=== PATIENT | male | born 1980 | race Two or more races ===

== ENCOUNTER 2019-11-21 18:17 | Inpatient (IN) | payer OTHER ==
[2019-11-21 20:46] VITALS: BMI 24.1
--- NOTE | 2019-11-22 04:15 | PN ---
[facility] CIWA - CIWA Score Nausea/Vomitin Muscle Tremors: 5 Anxiety: 4-Mod. Anxious/Guarded Agitation: 2 Paroxysmal Sweats: 3 Orientation: 0-Oriented Tacttile Disturbances: 0-None Auditory Disturbances: 0-None Visual Disturbances: 0-None Headache: 2-Mild CIWA-Ar Total Score: 18 [facility] Progress Note (SOAP) Subjective: Alcohol withdrawal symptoms Cannabis dependence Nicotine dependence Objective: 11/22/19 04:12 Alert and oriented x 3 Tremors Sweating Anxiety Shakes Kushal to the back of the head and chin to be removed Vital Signs Temperature 97.7 F 11/22/19 02:14 Pulse Rate 105 H 11/22/19 02:14 Respiratory Rate 20 11/22/19 02:14 Blood Pressure 137/89 11/22/19 02:14 O2 Sat by Pulse Oximetry (%) Assessment: 11/22/19 04:15 Alcohol withdrawal symptoms Plan: Admit to detox Librium regimen H and P including medication confirmation to be done in the morning See admission orders
[2019-11-22] MEDS ORDERED: MAG HYDROX/AL HYDROX/SIMETH 30 ML UNIT-DOSE CUP PO PRN (04:16)
[2019-11-22] MEDS ORDERED: MENTHOL/PHENOL 1 EACH UD MM PRN (04:16)
[2019-11-22] MEDS ORDERED: IBUPROFEN 400 MG TABLET (FP) PO PRN (04:16)
[2019-11-22] MEDS ORDERED: ACETAMINOPHEN 325 MG TABLET (FP) PO PRN ×2 (04:16)
[2019-11-22] MEDS ORDERED: chlordiazePOXIDE HCL 25 MG CAPSULE PO PRN (04:16)
[2019-11-22] MEDS ORDERED: MAGNESIUM CITRATE 300 ML BOTTLE PO PRN (04:16)
[2019-11-22] MEDS ORDERED: NICOTINE POLACRILEX 2 MG GUM BUC PRN (04:16)
[2019-11-22] MEDS ORDERED: hydrOXYzine PAMOATE 25 MG CAPSULE (FP) PO PRN (04:16)
[2019-11-22] MEDS ORDERED: METHOCARBAMOL 500 MG TABLET PO PRN (04:16)
[2019-11-22] MEDS ORDERED: MELATONIN 5 MG TABLETS PO PRN (04:16)
[2019-11-22] MEDS ORDERED: BISMUTH SUBSALICYLATE 524 MG/30 ML UD PO PRN (04:16)
[2019-11-22] MEDS ORDERED: MAGNESIUM HYDROX 2400MG/30ML ORAL SUSPENSION 30 ML CUP PO PRN (04:16)
[2019-11-22] MEDS: chlordiazePOXIDE HCL 25 MG CAPSULE PO SCH ×4 (05:56→23:36)
--- NOTE | 2019-11-22 09:21 | CONSULT ---
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 Refer to addiction counselor's summary for further information Medical History: Unremarkable. Smokes 3-4 cigarettes daily Psychiatric History: Reports that his first psychiatric contact occured in his 20's at [facility]. He said that he saw an outpatient psychiatrist at [facility] who diagnosed him with Bipolar and Schizophrenia. Reports seeing psychiatrist at that facility on & off till he moves to [place] at age 32. Reports that he was tried on different medications including Seroquel, Wellbutrin, Adderall etc. It is unclear why he was prescribed Adderal. Told fiction writer at first that it was to wean him off crystal meth, then he said that he was diagnosed with ADHD at age 32 before moving to [facility]. He added that he received Adderall through the mail from [place] in 2016. Denies receving psychiatric treatment since in [facility]. Denies prevous psychiatric hospitalization or suicidal attempt. Denies exoeriencing psychotic, manic symptoms, S/H ideations. However, reports feeling depressed Physical/Sexual Abuse/Trauma History: Denies history of abuse as a child or DV relationship as an adult Mental Status Exam - Mental Status Exam Alert and Oriented to: Time, Place, Person Cognitive Function: Fair Patient Appearance: Disheveled Mood: Depressed Affect: Appropriate Patient Behavior: Cooperative Speech Pattern: Clear Voice Loudness: Normal Thought Process: Intact, Goal Oriented Hallucinations: Denies Suicidal Ideation: Denies Homicidal Ideation: Denies Insight/Judgement: Poor Sleep: Fair Appetite: Good Muscle strength/Tone: Normal Gait/Station: Normal Psychiatric Findings - Problem List ([place] 1, 2,3) (1) Mood disorder Current Visit: Yes Status: Chronic (2) Bipolar disorder Current Visit: Yes Status: Ruled-out (3) ADHD (attention deficit hyperactivity disorder) Current Visit: Yes Status: Ruled-out (4) Substance induced mood disorder Current Visit: Yes Status: Acute (5) Alcohol dependence with uncomplicated withdrawal Current Visit: Yes Status: Acute (6) Cannabis abuse Current Visit: Yes Status: Acute (7) Nicotine dependence Current Visit: Yes Status: Acute - Initial Treatment Plan Initial Treatment Plan: 1) Continue inpatient detoxification. 2) Discussed with patient all referral options after completing detox and once cleaned for a significant period of time, he will need to be reassessed by a psychiatrist for diagnostic clarification and treatment
[2019-11-22] MEDS ORDERED: NICOTINE 14 MG/24 HOURS TOPICAL PATCH TD SCH (10:00)
[2019-11-22] MEDS: PRENATAL VITAMINS W/ FOLIC ACID TABLET (FP) PO SCH (10:13)
--- NOTE | 2019-11-22 10:29 | HP ---
CIWA Score Nausea/Vomitin Muscle Tremors: 5 Anxiety: 4-Mod. Anxious/Guarded Agitation: 2 Paroxysmal Sweats: 3 Orientation: 0-Oriented Tacttile Disturbances: 0-None Auditory Disturbances: 0-None Visual Disturbances: 0-None Headache: 2-Mild CIWA-Ar Total Score: 18 - Admission Criteria OASAS Guidelines: Admission for Medically Managed Detox: Requires at least one of the followin. CIWA greater than 12 2. Seizures within the past 24 hours 3. Delirium tremens within the past 24 hours 4. Hallucinations within the past 24 hours 5. Acute intervention needed for co occurring medical disorder 6. Acute intervention needed for co occurring psychiatric disorder 7. Severe withdrawal that cannot be handled at a lower level of care (continued vomiting, continued diarrhea, abnormal vital signs) requiring intravenous medication and/or fluids 8. Admitting History and Physical - Admission Chief Complaint: I am here for detox and go to rehab. History Source: Patient Limitations to Obtaining History: No Limitations - Past Medical History Psych: Yes: Bipolar, Depression, Schizophrenia - Past Surgical History Past Surgical History: Yes: None - Smoking History Smoking history: Current some day smoker Have you smoked in the past 12 months: Yes Aproximately how many cigarettes per day: 4 - Alcohol/Substance Use Hx Alcohol Use: Yes History of Substance Use: reports: None - Social History Usual Living Arrangement: Yes: Alone Do you think of yourself as: Straight/Heterosexual ADL: Independent History of Recent Travel: No Admission ROS [facility] - [facility] Chief Complaint: I need to get detox and stay clean. Allergies/Adverse Reactions: Allergies Allergy/AdvReac Type Severity Reaction Status Date / Time No Known Allergies Allergy Verified 11/21/19 20:25 History of Present Illness: pt is a 39yr old male with a history of alcohol dependence seeking detox for treatment. Exam Limitations: No Limitations - Ebola screening Have you traveled outside of the country in the last 21 days: No (N) Have you had contact with anyone from an Ebola affected area: No Have you been sick,other than usual withdrawal symptoms: No Do you have a fever: No - Review of Systems Constitutional: Chills, Night Sweats, Changes in sleep EENT: reports: Tearing Respiratory: reports: No Symptoms reported Cardiac: reports: No Symptoms Reported, Syncope GI: reports: Poor Appetite, Poor Fluid Intake : reports: No Symptoms Reported Musculoskeletal: reports: No Symptoms Reported Integumentary: reports: Bruising (pt states he fell/got hit not sure but he bust his chin open has glue as an adhesive for healing. no s/s of infection noted), Sweating Neuro: reports: Tingling, Tremors Endocrine: reports: Excessive Sweating, Flushing, Intolerance to Cold, Intolerance to Heat Hematology: reports: No Symptoms Reported Psychiatric: reports: No Sypmtoms Reported, Judgement Intact, Mood/Affect Appropiate, Orientated x3, Agitated, Anxious Other Systems: Reviewed and Negative Patient History - Patient Medical History Hx Anemia: No Hx Asthma: No Hx Chronic Obstructive Pulmonary Disease (COPD): No Hx Cancer: No Hx Cardiac Disorders: No Hx Congestive Heart Failure: No Hx Hypertension: No Hx Hypercholesterolemia: No Hx Pacemaker: No HX Cerebrovascular Accident: No Hx Seizures: No Hx Dementia: No Hx Diabetes: No Hx Gastrointestinal Disorders: No Hx Liver Disease: No Hx Genitourinary Disorders: No Hx Sexually Transmitted Disorders: No Hx Renal Disease (ESRD): No Hx Thyroid Disease: No Hx Human Immunodeficiency Virus (HIV): No (pt denies) Hx Hepatitis C: No Hx Depression: Yes Hx Suicide Attempt: No (pt denies) Hx Bipolar Disorder: Yes Hx Schizophrenia: Yes - Patient Surgical History Past Surgical History: No - PPD History Previous Implant?: No Documented Results: Negative w/o proof Implanted On Prior [facility] Admission?: Yes PPD to be Administered?: Yes - Reproductive History Patient is a Female of Child Bearing Age (11 -55 yrs old): No - Smoking Cessation Smoking history: Current some day smoker Aproximately how many cigarettes per day: 4 Hx Chewing Tobacco Use: No Initiated information on smoking cessation: Yes 'Breaking Loose' booklet given: 11/22/19 - Substance & Tx. History Hx Alcohol Use: Yes Hx Substance Use: Yes Substance Use Type: Alcohol, Marijuana Hx Substance Use Treatment: Yes [facility] - Substances abused Alcohol Substance route: Oral Frequency: Daily Amount used: 2 to 3 pints of vodka / 12 cans of beer. Age of first use: 5 Date of last use: 11/21/19 Marijuana/Hashish Substance route: Smoking Frequency: 3-6 times per week Amount used: 1 dime bag Age of first use: 13 Date of last use: 11/20/19 Admission Physical Exam [facility] - Vital Signs Vital Signs: Vital Signs - 24 hr 11/21/19 11/22/19 11/22/19 20:25 02:14 05:11 Temperature 97.7 F 97.7 F 97.7 F Pulse Rate 105 H 105 H 73 Respiratory 20 20 18 Rate Blood Pressure 137/89 137/89 133/85 - Physical General Appearance: Yes: Appropriately Dressed, Moderate Distress, Irritable, Sweating, Anxious HEENTM: Yes: Hearing grossly Normal, Normal Voice Respiratory: Yes: Lungs Clear, Normal Breath Sounds, No Respiratory Distress Neck: Yes: No masses,lesions,Nodules Breast: Yes: Within Normal Limits Cardiology: Yes: Regular Rhythm, Regular Rate, S1, S2 Abdominal: Yes: Normal Bowel Sounds, Non Tender, Soft Genitourinary: Yes: Within Normal Limits Back: Yes: Normal Inspection Musculoskeletal: Yes: full range of Motion Extremities: Yes: Normal Capillary Refill, Normal Inspection, Tremors Neurological: Yes: Fully Oriented, Alert, Normal Response Integumentary: Yes: Normal Color Lymphatic: Yes: Within Normal Limits - Diagnostic (1) Alcohol dependence with uncomplicated withdrawal Current Visit: Yes Status: Chronic (2) Cannabis abuse Current Visit: Yes Status: Chronic (3) Nicotine dependence Current Visit: Yes Status: Chronic Qualifiers: Nicotine product type: cigarettes Substance use status: uncomplicated Qualified Code(s): F17.210 - Nicotine dependence, cigarettes, uncomplicated (4) Substance induced mood disorder Current Visit: Yes Status: Acute (5) Mood disorder Current Visit: Yes Status: Chronic (6) ADHD (attention deficit hyperactivity disorder) Current Visit: Yes Status: Ruled-out (7) Bipolar disorder Current Visit: Yes Status: Ruled-out Cleared for Admission [facility] - Detox or Rehab [facility] Level of Care: Medically Managed Detox Regimen/Protocol: Librium Breathalyzer - Breathalyzer Breathalyzer: 0.148 Urine Drug Screen - Test Device Lot number: [id number] Expiration date: 06/06/21 - Control Is test valid?: Yes - Results Drug screen NEGATIVE: No Urine drug screen results: BZO-Benzodiazepines Inpatient Rehab Admission - Rehab Decision to Admit Inpatient rehab admission?: No
[2019-11-22] MEDS: THIAMINE HCL 100 MG TABLET (FP) PO SCH (23:37)
[2019-11-23] MEDS: chlordiazePOXIDE HCL 25 MG CAPSULE PO SCH ×4 (05:45→23:49)
[2019-11-23] MEDS: PRENATAL VITAMINS W/ FOLIC ACID TABLET (FP) PO SCH (10:11)
[2019-11-23 11:32] LABS: HEMATOCRIT 47.8 % (35.4-49); HEMOGLOBIN 16.6 GM/dL (11.7-16.9); MCH 34.7 pg (25.7-33.7); MCHC 34.6 g/dl (32.0-35.9); MEAN CELL VOLUME 100.1 fl (80-96); MEAN PLT VOLUME 8.9 fl (7.5-11.1); PLATELET COUNT 199 K/MM3 (134-434); RBC 4.78 M/mm3 (4.00-5.60); RDW 12.1 % (11.9-15.9); WHITE BLOOD COUNT 4.4 K/mm3 (4.0-10.0)
--- NOTE | 2019-11-23 11:33 | PN ---
[facility] CIWA - CIWA Score Nausea/Vomitin-No Nausea/No Vomiting Muscle Tremors: 3 Anxiety: 3 Agitation: 3 Paroxysmal Sweats: 2 Orientation: 0-Oriented Tacttile Disturbances: 0-None Auditory Disturbances: 0-None Visual Disturbances: 0-None Headache: 0-None Present CIWA-Ar Total Score: 11 S Progress Note (SOAP) Subjective: sweats anxiety body aches Objective: 11/23/19 11:30 Vital Signs Temperature 96.3 F L 11/23/19 10:00 Pulse Rate 75 11/23/19 10:00 Respiratory Rate 18 11/23/19 10:00 Blood Pressure 110/71 11/23/19 10:00 O2 Sat by Pulse Oximetry (%) pending labs aaox3 ambulating no acute distress Assessment: 11/23/19 11:31 withdrawals bruise noted to chin; bacitracin oint ordered Plan: continue detox
[2019-11-23 11:41] LABS: ALBUMIN 3.8 g/dl (3.4-5.0); BILIRUBIN,TOTAL 1.2 mg/dL (0.2-1); BLOOD UREA NITROGEN 9.9 mg/dL (7-18); CALCIUM 9.3 mg/dL (8.5-10.1); CREATININE 0.8 mg/dL (0.55-1.3); POTASSIUM 4.2 mmol/L (3.5-5.1); TOT PROT 6.9 g/dl (6.4-8.2)
[2019-11-23] MEDS: BACITRACIN 15 GM TUBE TOPICAL OINTMENT TP SCH ×2 (12:41→23:49)
[2019-11-23] MEDS: THIAMINE HCL 100 MG TABLET (FP) PO SCH (23:49)
[2019-11-24] MEDS ORDERED: chlordiazePOXIDE HCL 10 MG CAPSULE PO PRN
[2019-11-24] MEDS: chlordiazePOXIDE HCL 10 MG CAPSULE PO SCH ×2 (05:31→10:16)
[2019-11-24 09:39] VITALS: BP 151/78; PULSE 91; TEMP 98.2
[2019-11-24] MEDS: PRENATAL VITAMINS W/ FOLIC ACID TABLET (FP) PO SCH (10:15)
[2019-11-24] MEDS: BACITRACIN 15 GM TUBE TOPICAL OINTMENT TP SCH (10:16)
--- NOTE | 2019-11-24 12:13 | PN ---
S CIWA - CIWA Score Nausea/Vomitin-No Nausea/No Vomiting Muscle Tremors: 2 Anxiety: 1-Mildly Anxious Agitation: 1-Slight > Activity Paroxysmal Sweats: No Perspiration Orientation: 0-Oriented Tacttile Disturbances: 0-None Auditory Disturbances: 0-None Visual Disturbances: 0-None Headache: 0-None Present CIWA-Ar Total Score: 4 [facility]HS Progress Note (SOAP) Subjective: feeling better anxiety Objective: 11/24/19 12:12 Vital Signs Temperature 98.2 F 11/24/19 09:39 Pulse Rate 91 H 11/24/19 09:39 Respiratory Rate 18 11/24/19 09:39 Blood Pressure 151/78 11/24/19 09:39 O2 Sat by Pulse Oximetry (%) aaox3 ambulating no acute distress Assessment: 11/24/19 12:12 mild withdrawal sx Plan: d/c in am
--- NOTE | 2019-11-24 14:54 | DS ---
[facility] Detox Discharge Summary Admission Date: 11/22/19 Discharge Date: 11/24/19 - History Present History: Alcohol Dependence, Cannabis Dependence - Physical Exam Results Vital Signs: Vital Signs Temperature 98.2 F 11/24/19 09:39 Pulse Rate 91 H 11/24/19 09:39 Respiratory Rate 18 11/24/19 09:39 Blood Pressure 151/78 11/24/19 09:39 O2 Sat by Pulse Oximetry (%) Pertinent Admission Physical Exam Findings: Vital Signs Temperature 98.2 F 11/24/19 09:39 Pulse Rate 91 H 11/24/19 09:39 Respiratory Rate 18 11/24/19 09:39 Blood Pressure 151/78 11/24/19 09:39 O2 Sat by Pulse Oximetry (%) Laboratory Tests 11/23/19 11/23/19 11/23/19 08:20 08:20 08:20 WBC 4.4 RBC 4.78 Hgb 16.6 Hct 47.8 MCV 100.1 H MCH 34.7 H MCHC 34.6 RDW 12.1 Plt Count 199 MPV 8.9 Sodium 137 Potassium 4.2 Chloride 105 Carbon Dioxide 28 Anion Gap 5 L BUN 9.9 Creatinine 0.8 Est GFR (CKD-EPI)AfAm 128.60 Est GFR (CKD-EPI)NonAf 110.96 Random Glucose 99 Calcium 9.3 Total Bilirubin 1.2 H AST 37 ALT 46 Alkaline Phosphatase 166 H Total Protein 6.9 Albumin 3.8 RPR Titer Nonreactive aaox3 ambulating no acute distress - Treatment Hospital Course: Detox Protocol Followed, Detoxed Safely, Responded well, Discharged Condition Good, Rehab Referral Accepted Patient has Accepted a Rehab Referral to: referral provided - Medication Discharge Medications: Ambulatory Orders NK [No Known Home Medication] 11/21/19 - Diagnosis (1) Alcohol dependence with uncomplicated withdrawal Current Visit: Yes Status: Chronic (2) Cannabis abuse Current Visit: Yes Status: Chronic (3) Nicotine dependence Current Visit: Yes Status: Chronic Qualifiers: Nicotine product type: cigarettes Substance use status: uncomplicated Qualified Code(s): F17.210 - Nicotine dependence, cigarettes, uncomplicated (4) Substance induced mood disorder Current Visit: Yes Status: Acute (5) Mood disorder Current Visit: Yes Status: Chronic (6) ADHD (attention deficit hyperactivity disorder) Current Visit: Yes Status: Ruled-out (7) Bipolar disorder Current Visit: Yes Status: Ruled-out - AMA Did Patient Leave Against Medical Advice: No
[2019-11-25] MEDS ORDERED: chlordiazePOXIDE HCL 10 MG CAPSULE PO SCH (05:00)
[2019-11-25] MEDS ORDERED: chlordiazePOXIDE HCL 10 MG CAPSULE PO ONE (06:00)
[2019-11-26] MEDS ORDERED: chlordiazePOXIDE HCL 10 MG CAPSULE PO ONE (05:00)
== END 2019-11-24 03:04 | disposition home or self-care (01) | DRG 775 ==
LOC: YASAS 18:17 → Y6N 11-22 04:25
PROVIDERS: ADMIT Allergy & Immunology; ATTEND Allergy & Immunology
PROC: HZ2ZZZZ Detoxification Services for Substance Abuse Treatment (ICD-10-PCS; principal; 2019-11-22)
DX: F10.230 Alcohol dependence with withdrawal, uncomplicated (principal); F12.10 Cannabis abuse, uncomplicated; F17.210 Nicotine dependence, cigarettes, uncomplicated; F31.9 Bipolar disorder, unspecified; F20.9 Schizophrenia, unspecified; F19.24 Other psychoactive substance dependence with psychoactive substance-induced mood disorder; F39 Unspecified mood [affective] disorder; S01.81XA Laceration without foreign body of other part of head, initial encounter; W19.XXXA Unspecified fall, initial encounter; Y93.89 Activity, other specified; Y92.89 Other specified places as the place of occurrence of the external cause; Y99.8 Other external cause status
CPT/HCPCS: 36415; 80053; 85027; 86593

== ENCOUNTER 2021-09-04 18:17 | Inpatient (IN) | payer OTHER ==
[2021-09-04 19:10] VITALS: BMI 22.6
[2021-09-04] MEDS ORDERED: IBUPROFEN 400 MG TABLET (FP) PO PRN (20:04)
[2021-09-04] MEDS ORDERED: MAG HYDROX/AL HYDROX/SIMETH 30 ML UNIT-DOSE CUP PO PRN (20:04)
[2021-09-04] MEDS ORDERED: BISMUTH SUBSALICYLATE 524 MG/30 ML PO PRN (20:04)
[2021-09-04] MEDS ORDERED: ACETAMINOPHEN 325 MG TABLET (FP) PO PRN ×2 (20:04)
[2021-09-04] MEDS ORDERED: ONDANSETRON *ODT* 4 MG TABLET SL PRN (20:04)
[2021-09-04] MEDS ORDERED: NICOTINE 10 MG CARTRIDGE (INHALER) IH PRN (20:04)
[2021-09-04] MEDS ORDERED: MENTHOL/PHENOL 1 EACH UD MM PRN (20:04)
[2021-09-04] MEDS ORDERED: MAGNESIUM CITRATE 300 ML BOTTLE PO PRN (20:04)
[2021-09-04] MEDS ORDERED: MAGNESIUM HYDROX 2400MG/30ML ORAL SUSPENSION 30 ML CUP PO PRN (20:04)
[2021-09-04] MEDS ORDERED: METHOCARBAMOL 500 MG TABLET PO PRN (20:04)
[2021-09-05] MEDS: hydrOXYzine PAMOATE 25 MG CAPSULE (FP) PO SCH ×6 (05:22→22:17)
[2021-09-05] MEDS: diazePAM 5 MG TABLET PO SCH ×5 (05:22→22:17)
[2021-09-05] MEDS: THIAMINE HCL 100 MG TABLET (FP) PO SCH ×2 (05:38→22:17)
[2021-09-05] MEDS: MELATONIN 5 MG TABLETS PO SCH ×2 (05:38→22:17)
[2021-09-05] MEDS: PRENATAL VITAMINS W/ FOLIC ACID TABLET (FP) PO SCH (10:38)
[2021-09-05 11:26] LABS: HEMATOCRIT 38.8 % (35.4-49); HEMOGLOBIN 14.2 GM/dL (11.7-16.9); MCH 35.1 pg (25.7-33.7); MCHC 36.6 g/dl (32.0-35.9); MEAN CELL VOLUME 95.9 fl (80-96); MEAN PLT VOLUME 8.3 fl (7.5-11.1); PLATELET COUNT 152 10^3/uL (134-434); RBC 4.04 M/mm3 (4.00-5.60); RDW 13.4 % (11.9-15.9); WHITE BLOOD COUNT 3.4 K/mm3 (4.0-10.0)
[2021-09-05 11:40] LABS: CALCIUM 8.8 mg/dL (8.5-10.1)
[2021-09-05 11:41] LABS: ALBUMIN 3.6 g/dl (3.4-5.0); BLOOD UREA NITROGEN 9.4 mg/dL (7-18); CREATININE 0.8 mg/dL (0.55-1.3)
[2021-09-05 11:42] LABS: BILIRUBIN,TOTAL 0.7 mg/dL (0.2-1)
[2021-09-05 11:48] LABS: TOT PROT 6.9 g/dl (6.4-8.2)
[2021-09-05] MEDS: diazePAM 5 MG TABLET PO PRN (14:28)
[2021-09-06] MEDS: diazePAM 5 MG TABLET PO SCH ×3 (05:33→22:10)
[2021-09-06] MEDS: hydrOXYzine PAMOATE 25 MG CAPSULE (FP) PO SCH ×5 (05:33→22:11)
[2021-09-06] MEDS: PRENATAL VITAMINS W/ FOLIC ACID TABLET (FP) PO SCH (10:07)
[2021-09-06] MEDS: diazePAM 5 MG TABLET PO PRN ×2 (10:08→17:44)
[2021-09-06 11:37] LABS: INR 0.92 (0.83-1.09); PROTHROMBIN TIME (PATIENT) 10.7 SEC (9.7-13.0)
[2021-09-06] MEDS: THIAMINE HCL 100 MG TABLET (FP) PO SCH (22:11)
[2021-09-06] MEDS: MELATONIN 5 MG TABLETS PO SCH (22:11)
[2021-09-07] MEDS: diazePAM 5 MG TABLET PO SCH ×2 (05:29→17:51)
[2021-09-07] MEDS: hydrOXYzine PAMOATE 25 MG CAPSULE (FP) PO SCH ×5 (05:29→22:11)
[2021-09-07] MEDS: PRENATAL VITAMINS W/ FOLIC ACID TABLET (FP) PO SCH (10:13)
[2021-09-07] MEDS: THIAMINE HCL 100 MG TABLET (FP) PO SCH (22:11)
[2021-09-07] MEDS: MELATONIN 5 MG TABLETS PO SCH (22:11)
[2021-09-08] MEDS: hydrOXYzine PAMOATE 25 MG CAPSULE (FP) PO SCH ×2 (05:21→10:20)
[2021-09-08] MEDS ORDERED: diazePAM 5 MG TABLET PO ONE (06:00)
[2021-09-08 09:38] VITALS: BP 131/72; PULSE 112; TEMP 96.4
[2021-09-08] MEDS: PRENATAL VITAMINS W/ FOLIC ACID TABLET (FP) PO SCH (10:20)
== END 2021-09-08 12:08 | disposition other institution (70) | DRG 775 ==
LOC: YASAS 18:17 → Y3N 09-05 01:47 → UNDODISIN 09-08 09:23
PROVIDERS: ADMIT Allergy & Immunology; ATTEND Allergy & Immunology
PROC: HZ2ZZZZ Detoxification Services for Substance Abuse Treatment (ICD-10-PCS; principal; 2021-09-05)
DX: F10.230 Alcohol dependence with withdrawal, uncomplicated (principal); F12.20 Cannabis dependence, uncomplicated; F17.210 Nicotine dependence, cigarettes, uncomplicated; F25.9 Schizoaffective disorder, unspecified; F19.24 Other psychoactive substance dependence with psychoactive substance-induced mood disorder; F90.9 Attention-deficit hyperactivity disorder, unspecified type; F32.A Depression, unspecified; F41.9 Anxiety disorder, unspecified; Z87.891 Personal history of nicotine dependence; Z86.59 Personal history of other mental and behavioral disorders; Z59.00 Homelessness unspecified; Z56.0 Unemployment, unspecified; Z91.19 Patient's noncompliance with other medical treatment and regimen
CPT/HCPCS: 36415; 80053; 84450; 84460; 85027; 85610; 86780; C9803; U0003; U0005

== ENCOUNTER 2021-09-08 13:27 | Inpatient (IN) | payer OTHER ==
[2021-09-08] MEDS ORDERED: LOPERAMIDE HCL 2 MG CAPSULE PO PRN (14:50)
[2021-09-08] MEDS ORDERED: MAGNESIUM CITRATE 300 ML BOTTLE PO PRN (14:50)
[2021-09-08] MEDS ORDERED: ACETAMINOPHEN 325 MG TABLET (FP) PO PRN (14:50)
[2021-09-08] MEDS ORDERED: MAGNESIUM HYDROX 2400MG/30ML ORAL SUSPENSION 30 ML CUP PO PRN (14:50)
[2021-09-08] MEDS ORDERED: P-EPHED 60MG/TRIPROLIDI 2.5MG TABLET PO PRN (14:50)
[2021-09-08] MEDS ORDERED: MENTHOL/PHENOL 1 EACH UD MM PRN (14:50)
[2021-09-08] MEDS ORDERED: MAG HYDROX/AL HYDROX/SIMETH 30 ML UNIT-DOSE CUP PO PRN (14:50)
[2021-09-08] MEDS ORDERED: IBUPROFEN 400 MG TABLET (FP) PO PRN (14:50)
[2021-09-08] MEDS ORDERED: guaiFENesin 200 MG/10 ML 10 ML UNIT-DOSE CUPS PO PRN (14:50)
[2021-09-08] MEDS: hydrOXYzine PAMOATE 25 MG CAPSULE (FP) PO SCH ×2 (18:45→21:30)
[2021-09-08] MEDS: MELATONIN 5 MG TABLETS PO SCH (21:30)
[2021-09-08] MEDS: THIAMINE HCL 100 MG TABLET (FP) PO SCH (21:30)
[2021-09-08] MEDS: QUEtiapine FUMARATE 100 MG TABLET (FP) PO SCH (21:30)
[2021-09-09] MEDS: hydrOXYzine PAMOATE 25 MG CAPSULE (FP) PO SCH ×5 (06:25→21:09)
[2021-09-09] MEDS: ESCITALOPRAM OXALATE 10 MG TABLET PO SCH (09:53)
[2021-09-09] MEDS: PRENATAL VITAMINS W/ FOLIC ACID TABLET (FP) PO SCH (09:53)
[2021-09-09] MEDS: QUEtiapine FUMARATE 100 MG TABLET (FP) PO SCH ×2 (09:53→21:09)
[2021-09-09] MEDS: THIAMINE HCL 100 MG TABLET (FP) PO SCH (21:08)
[2021-09-09] MEDS: MELATONIN 5 MG TABLETS PO SCH (21:08)
[2021-09-10] MEDS: hydrOXYzine PAMOATE 25 MG CAPSULE (FP) PO SCH ×2 (06:39→10:37)
[2021-09-10] MEDS: PRENATAL VITAMINS W/ FOLIC ACID TABLET (FP) PO SCH (10:23)
[2021-09-10] MEDS: hydrOXYzine PAMOATE 50 MG CAPSULE (FP) PO SCH ×3 (10:37→21:39)
[2021-09-10] MEDS: ESCITALOPRAM OXALATE 10 MG TABLET PO SCH (10:37)
[2021-09-10] MEDS: QUEtiapine FUMARATE 100 MG TABLET (FP) PO SCH (10:37)
[2021-09-10] MEDS: THIAMINE HCL 100 MG TABLET (FP) PO SCH (21:38)
[2021-09-10] MEDS: QUEtiapine FUMARATE 200 MG TABLET PO SCH (21:39)
[2021-09-11] MEDS: hydrOXYzine PAMOATE 50 MG CAPSULE (FP) PO SCH ×4 (05:30→21:30)
[2021-09-11] MEDS: QUEtiapine FUMARATE 100 MG TABLET (FP) PO SCH (09:50)
[2021-09-11] MEDS: ESCITALOPRAM OXALATE 10 MG TABLET PO SCH (09:50)
[2021-09-11] MEDS: PRENATAL VITAMINS W/ FOLIC ACID TABLET (FP) PO SCH (09:50)
[2021-09-11] MEDS: THIAMINE HCL 100 MG TABLET (FP) PO SCH (21:05)
[2021-09-11] MEDS: QUEtiapine FUMARATE 200 MG TABLET PO SCH (21:05)
[2021-09-12] MEDS: hydrOXYzine PAMOATE 50 MG CAPSULE (FP) PO SCH ×5 (06:40→21:56)
[2021-09-12] MEDS: QUEtiapine FUMARATE 100 MG TABLET (FP) PO SCH (10:05)
[2021-09-12] MEDS: PRENATAL VITAMINS W/ FOLIC ACID TABLET (FP) PO SCH (10:05)
[2021-09-12] MEDS: ESCITALOPRAM OXALATE 10 MG TABLET PO SCH (10:05)
[2021-09-12] MEDS: THIAMINE HCL 100 MG TABLET (FP) PO SCH (21:57)
[2021-09-12] MEDS: QUEtiapine FUMARATE 200 MG TABLET PO SCH (21:57)
[2021-09-13] MEDS: hydrOXYzine PAMOATE 50 MG CAPSULE (FP) PO SCH ×4 (06:50→23:33)
[2021-09-13] MEDS: QUEtiapine FUMARATE 100 MG TABLET (FP) PO SCH (10:13)
[2021-09-13] MEDS: ESCITALOPRAM OXALATE 10 MG TABLET PO SCH (10:13)
[2021-09-13] MEDS: PRENATAL VITAMINS W/ FOLIC ACID TABLET (FP) PO SCH (10:13)
[2021-09-13] MEDS: QUEtiapine FUMARATE 200 MG TABLET PO SCH (21:03)
[2021-09-13] MEDS: THIAMINE HCL 100 MG TABLET (FP) PO SCH (21:03)
[2021-09-14] MEDS: hydrOXYzine PAMOATE 50 MG CAPSULE (FP) PO SCH ×4 (06:36→23:41)
[2021-09-14] MEDS: QUEtiapine FUMARATE 100 MG TABLET (FP) PO SCH (09:37)
[2021-09-14] MEDS: PRENATAL VITAMINS W/ FOLIC ACID TABLET (FP) PO SCH (09:37)
[2021-09-14] MEDS: ESCITALOPRAM OXALATE 10 MG TABLET PO SCH (09:37)
[2021-09-14 14:57] LABS: ALBUMIN 3.7 g/dl (3.4-5.0); BLOOD UREA NITROGEN 14.7 mg/dL (7-18); CALCIUM 8.8 mg/dL (8.5-10.1)
[2021-09-14 15:00] LABS: CREATININE 0.8 mg/dL (0.55-1.3)
[2021-09-14 15:02] LABS: BILIRUBIN,TOTAL 0.3 mg/dL (0.2-1)
[2021-09-14] MEDS: QUEtiapine FUMARATE 200 MG TABLET PO SCH (21:38)
[2021-09-14] MEDS: THIAMINE HCL 100 MG TABLET (FP) PO SCH (21:38)
[2021-09-15] MEDS: hydrOXYzine PAMOATE 50 MG CAPSULE (FP) PO SCH ×5 (06:27→23:37)
[2021-09-15] MEDS: QUEtiapine FUMARATE 100 MG TABLET (FP) PO SCH (09:57)
[2021-09-15] MEDS: PRENATAL VITAMINS W/ FOLIC ACID TABLET (FP) PO SCH (09:57)
[2021-09-15] MEDS: ESCITALOPRAM OXALATE 10 MG TABLET PO SCH (09:58)
[2021-09-15] MEDS: QUEtiapine FUMARATE 200 MG TABLET PO SCH (21:03)
[2021-09-15] MEDS: THIAMINE HCL 100 MG TABLET (FP) PO SCH (21:03)
[2021-09-16] MEDS: hydrOXYzine PAMOATE 50 MG CAPSULE (FP) PO SCH ×3 (07:10→12:53)
[2021-09-16] MEDS: PRENATAL VITAMINS W/ FOLIC ACID TABLET (FP) PO SCH (10:24)
[2021-09-16] MEDS: ESCITALOPRAM OXALATE 10 MG TABLET PO SCH ×2 (10:24→11:00)
[2021-09-16] MEDS: QUEtiapine FUMARATE 100 MG TABLET (FP) PO SCH ×2 (10:25→11:00)
[2021-09-16] MEDS: busPIRone HCL 5 MG TABLET PO SCH ×2 (15:14→21:30)
[2021-09-16] MEDS: ESCITALOPRAM OXALATE 20 MG TABLET PO SCH (15:15)
[2021-09-16] MEDS: QUEtiapine FUMARATE 200 MG TABLET PO SCH (21:30)
[2021-09-16] MEDS: THIAMINE HCL 100 MG TABLET (FP) PO SCH (21:30)
[2021-09-17] MEDS: busPIRone HCL 5 MG TABLET PO SCH ×3 (06:16→21:04)
[2021-09-17] MEDS: ESCITALOPRAM OXALATE 20 MG TABLET PO SCH (09:56)
[2021-09-17] MEDS: PRENATAL VITAMINS W/ FOLIC ACID TABLET (FP) PO SCH (09:56)
[2021-09-17] MEDS: QUEtiapine FUMARATE 100 MG TABLET (FP) PO SCH (09:56)
[2021-09-17] MEDS: THIAMINE HCL 100 MG TABLET (FP) PO SCH (21:03)
[2021-09-17] MEDS: QUEtiapine FUMARATE 200 MG TABLET PO SCH (21:04)
[2021-09-18] MEDS: busPIRone HCL 5 MG TABLET PO SCH ×3 (06:37→21:35)
[2021-09-18] MEDS: ESCITALOPRAM OXALATE 20 MG TABLET PO SCH (10:27)
[2021-09-18] MEDS: QUEtiapine FUMARATE 100 MG TABLET (FP) PO SCH (10:27)
[2021-09-18] MEDS: PRENATAL VITAMINS W/ FOLIC ACID TABLET (FP) PO SCH (10:27)
[2021-09-18] MEDS: QUEtiapine FUMARATE 200 MG TABLET PO SCH (21:35)
[2021-09-18] MEDS: THIAMINE HCL 100 MG TABLET (FP) PO SCH (21:35)
[2021-09-19] MEDS: busPIRone HCL 5 MG TABLET PO SCH ×3 (06:23→21:06)
[2021-09-19] MEDS: PRENATAL VITAMINS W/ FOLIC ACID TABLET (FP) PO SCH (10:18)
[2021-09-19] MEDS: QUEtiapine FUMARATE 100 MG TABLET (FP) PO SCH (10:18)
[2021-09-19] MEDS: ESCITALOPRAM OXALATE 20 MG TABLET PO SCH (10:18)
[2021-09-19] MEDS: THIAMINE HCL 100 MG TABLET (FP) PO SCH (21:06)
[2021-09-19] MEDS: QUEtiapine FUMARATE 200 MG TABLET PO SCH (21:06)
[2021-09-20] MEDS: busPIRone HCL 5 MG TABLET PO SCH ×3 (06:47→21:32)
[2021-09-20] MEDS: PRENATAL VITAMINS W/ FOLIC ACID TABLET (FP) PO SCH (10:10)
[2021-09-20] MEDS: ESCITALOPRAM OXALATE 20 MG TABLET PO SCH (10:10)
[2021-09-20] MEDS: QUEtiapine FUMARATE 100 MG TABLET (FP) PO SCH (10:10)
[2021-09-20] MEDS: THIAMINE HCL 100 MG TABLET (FP) PO SCH (21:32)
[2021-09-20] MEDS: QUEtiapine FUMARATE 200 MG TABLET PO SCH (21:33)
[2021-09-21] MEDS: busPIRone HCL 5 MG TABLET PO SCH ×3 (06:56→21:01)
[2021-09-21] MEDS: ESCITALOPRAM OXALATE 20 MG TABLET PO SCH (10:22)
[2021-09-21] MEDS: QUEtiapine FUMARATE 100 MG TABLET (FP) PO SCH (10:22)
[2021-09-21] MEDS: PRENATAL VITAMINS W/ FOLIC ACID TABLET (FP) PO SCH (10:22)
[2021-09-21] MEDS: QUEtiapine FUMARATE 200 MG TABLET PO SCH (21:01)
[2021-09-21] MEDS: THIAMINE HCL 100 MG TABLET (FP) PO SCH (21:01)
[2021-09-22] MEDS: busPIRone HCL 5 MG TABLET PO SCH (06:51)
[2021-09-22 07:12] VITALS: BP 114/69; PULSE 85; TEMP 97
[2021-09-22] MEDS: QUEtiapine FUMARATE 100 MG TABLET (FP) PO SCH (09:32)
[2021-09-22] MEDS: PRENATAL VITAMINS W/ FOLIC ACID TABLET (FP) PO SCH (09:32)
[2021-09-22] MEDS: ESCITALOPRAM OXALATE 20 MG TABLET PO SCH (09:32)
== END 2021-09-22 09:50 | disposition home or self-care (01) | DRG 772 ==
LOC: YASAS 13:27 → Y3W 13:29
PROVIDERS: ADMIT Allergy & Immunology; ATTEND Allergy & Immunology
PROC: HZ42ZZZ Group Counseling for Substance Abuse Treatment, Cognitive-Behavioral (ICD-10-PCS; principal; 2021-09-08)
DX: F10.20 Alcohol dependence, uncomplicated (principal); F12.20 Cannabis dependence, uncomplicated; F31.9 Bipolar disorder, unspecified; F20.9 Schizophrenia, unspecified; F19.24 Other psychoactive substance dependence with psychoactive substance-induced mood disorder; F41.8 Other specified anxiety disorders; F32.A Depression, unspecified; F90.9 Attention-deficit hyperactivity disorder, unspecified type; R94.5 Abnormal results of liver function studies; Z87.891 Personal history of nicotine dependence; Z56.0 Unemployment, unspecified; Z59.00 Homelessness unspecified; Z91.19 Patient's noncompliance with other medical treatment and regimen
CPT/HCPCS: 36415; 80053

== ENCOUNTER 2021-10-04 14:06 | Inpatient (IN) | payer OTHER ==
[2021-10-04] MEDS ORDERED: MENTHOL/PHENOL 1 EACH UD MM PRN (14:41)
[2021-10-04] MEDS ORDERED: MAGNESIUM CITRATE 300 ML BOTTLE PO PRN (14:41)
[2021-10-04] MEDS ORDERED: NICOTINE 10 MG CARTRIDGE (INHALER) IH PRN (14:41)
[2021-10-04] MEDS ORDERED: MAGNESIUM HYDROX 2400MG/30ML ORAL SUSPENSION 30 ML CUP PO PRN (14:41)
[2021-10-04] MEDS ORDERED: MAG HYDROX/AL HYDROX/SIMETH 30 ML UNIT-DOSE CUP PO PRN (14:41)
[2021-10-04] MEDS ORDERED: diazePAM 5 MG TABLET PO ONE (14:41)
[2021-10-04] MEDS ORDERED: BISMUTH SUBSALICYLATE 524 MG/30 ML PO PRN (14:41)
[2021-10-04] MEDS ORDERED: METHOCARBAMOL 500 MG TABLET PO PRN (14:41)
[2021-10-04] MEDS ORDERED: ONDANSETRON *ODT* 4 MG TABLET SL PRN (14:41)
[2021-10-04] MEDS ORDERED: IBUPROFEN 400 MG TABLET (FP) PO PRN (14:41)
[2021-10-04] MEDS ORDERED: ACETAMINOPHEN 325 MG TABLET (FP) PO PRN ×2 (14:41)
[2021-10-04 15:11] VITALS: BMI 23.6
[2021-10-04] MEDS: PRENATAL VITAMINS W/ FOLIC ACID TABLET (FP) PO SCH (15:41)
[2021-10-04] MEDS: hydrOXYzine PAMOATE 25 MG CAPSULE (FP) PO SCH ×2 (18:17→23:31)
[2021-10-04] MEDS: diazePAM 5 MG TABLET PO SCH ×2 (18:17→23:28)
[2021-10-04] MEDS ORDERED: QUEtiapine FUMARATE 200 MG TABLET PO ONE (22:00)
[2021-10-04] MEDS: THIAMINE HCL 100 MG TABLET (FP) PO SCH (23:28)
[2021-10-04] MEDS: MELATONIN 5 MG TABLETS PO SCH (23:28)
[2021-10-05] MEDS: hydrOXYzine PAMOATE 25 MG CAPSULE (FP) PO SCH ×5 (05:49→23:02)
[2021-10-05] MEDS: diazePAM 5 MG TABLET PO SCH ×4 (05:49→22:38)
[2021-10-05] MEDS ORDERED: QUEtiapine FUMARATE 100 MG TABLET (FP) PO ONE (10:00)
[2021-10-05] MEDS: PRENATAL VITAMINS W/ FOLIC ACID TABLET (FP) PO SCH (10:12)
[2021-10-05] MEDS: ESCITALOPRAM OXALATE 20 MG TABLET PO ONE (10:12)
[2021-10-05] MEDS ORDERED: ESCITALOPRAM OXALATE 20 MG TABLET PO SCH (10:45)
[2021-10-05] MEDS ORDERED: QUEtiapine FUMARATE 100 MG TABLET (FP) PO SCH (10:45)
[2021-10-05 10:46] LABS: HEMATOCRIT 46.9 % (35.4-49); HEMOGLOBIN 16.3 GM/dL (11.7-16.9); MCH 33.2 pg (25.7-33.7); MCHC 34.8 g/dl (32.0-35.9); MEAN CELL VOLUME 95.5 fl (80-96); MEAN PLT VOLUME 9.1 fl (7.5-11.1); PLATELET COUNT 154 10^3/uL (134-434); RBC 4.91 M/mm3 (4.00-5.60); RDW 13.5 % (11.9-15.9); WHITE BLOOD COUNT 3.7 K/mm3 (4.0-10.0)
[2021-10-05 11:20] LABS: CALCIUM 9.1 mg/dL (8.5-10.1)
[2021-10-05 11:21] LABS: ALBUMIN 3.7 g/dl (3.4-5.0); BLOOD UREA NITROGEN 10.4 mg/dL (7-18)
[2021-10-05 11:24] LABS: CREATININE 0.8 mg/dL (0.55-1.3)
[2021-10-05 11:25] LABS: TOT PROT 7.4 g/dl (6.4-8.2)
[2021-10-05 11:26] LABS: BILIRUBIN,TOTAL 1.3 mg/dL (0.2-1)
[2021-10-05] MEDS: busPIRone HCL 5 MG TABLET PO SCH ×2 (15:16→22:38)
[2021-10-05] MEDS: THIAMINE HCL 100 MG TABLET (FP) PO SCH (22:37)
[2021-10-05] MEDS: MELATONIN 5 MG TABLETS PO SCH (22:37)
[2021-10-05] MEDS: QUEtiapine FUMARATE 200 MG TABLET PO SCH (22:38)
[2021-10-06] MEDS: diazePAM 5 MG TABLET PO SCH ×3 (05:41→22:14)
[2021-10-06] MEDS: hydrOXYzine PAMOATE 25 MG CAPSULE (FP) PO SCH ×5 (05:41→22:14)
[2021-10-06] MEDS: busPIRone HCL 5 MG TABLET PO SCH ×3 (05:41→22:14)
[2021-10-06] MEDS: ESCITALOPRAM OXALATE 20 MG TABLET PO ONE (11:10)
[2021-10-06] MEDS: QUEtiapine FUMARATE 100 MG TABLET (FP) PO SCH (11:15)
[2021-10-06] MEDS: PRENATAL VITAMINS W/ FOLIC ACID TABLET (FP) PO SCH (11:15)
[2021-10-06] MEDS: ESCITALOPRAM OXALATE 20 MG TABLET PO SCH (11:15)
[2021-10-06] MEDS: diazePAM 5 MG TABLET PO PRN (17:31)
[2021-10-06] MEDS: THIAMINE HCL 100 MG TABLET (FP) PO SCH (22:14)
[2021-10-06] MEDS: QUEtiapine FUMARATE 200 MG TABLET PO SCH (22:14)
[2021-10-06] MEDS: MELATONIN 5 MG TABLETS PO SCH (23:10)
[2021-10-07] MEDS: hydrOXYzine PAMOATE 25 MG CAPSULE (FP) PO SCH ×5 (05:28→22:23)
[2021-10-07] MEDS: busPIRone HCL 5 MG TABLET PO SCH ×3 (05:28→22:23)
[2021-10-07] MEDS: diazePAM 5 MG TABLET PO SCH ×2 (05:29→17:33)
[2021-10-07] MEDS: QUEtiapine FUMARATE 100 MG TABLET (FP) PO SCH (09:47)
[2021-10-07] MEDS: diazePAM 5 MG TABLET PO PRN (09:48)
[2021-10-07] MEDS: PRENATAL VITAMINS W/ FOLIC ACID TABLET (FP) PO SCH (09:48)
[2021-10-07] MEDS: ESCITALOPRAM OXALATE 20 MG TABLET PO SCH (09:48)
[2021-10-07] MEDS: THIAMINE HCL 100 MG TABLET (FP) PO SCH (22:23)
[2021-10-07] MEDS: MELATONIN 5 MG TABLETS PO SCH (22:24)
[2021-10-07] MEDS: QUEtiapine FUMARATE 200 MG TABLET PO SCH (22:24)
[2021-10-08] MEDS: hydrOXYzine PAMOATE 25 MG CAPSULE (FP) PO SCH ×2 (05:51→10:18)
[2021-10-08] MEDS: busPIRone HCL 5 MG TABLET PO SCH (05:51)
[2021-10-08] MEDS ORDERED: diazePAM 5 MG TABLET PO ONE (06:00)
[2021-10-08 09:19] VITALS: BP 142/88; PULSE 102; TEMP 97.3
[2021-10-08] MEDS: ESCITALOPRAM OXALATE 20 MG TABLET PO SCH (10:18)
[2021-10-08] MEDS: PRENATAL VITAMINS W/ FOLIC ACID TABLET (FP) PO SCH (10:18)
[2021-10-08] MEDS: QUEtiapine FUMARATE 100 MG TABLET (FP) PO SCH (10:18)
== END 2021-10-08 10:19 | disposition home or self-care (01) | DRG 775 ==
LOC: YASAS 14:06 → Y3N 15:01
PROVIDERS: ADMIT Allergy & Immunology; ATTEND Allergy & Immunology
PROC: HZ2ZZZZ Detoxification Services for Substance Abuse Treatment (ICD-10-PCS; principal; 2021-10-04)
DX: F10.230 Alcohol dependence with withdrawal, uncomplicated (principal); F10.24 Alcohol dependence with alcohol-induced mood disorder; F10.282 Alcohol dependence with alcohol-induced sleep disorder; F10.280 Alcohol dependence with alcohol-induced anxiety disorder; F12.10 Cannabis abuse, uncomplicated; F31.9 Bipolar disorder, unspecified; F25.9 Schizoaffective disorder, unspecified; R94.5 Abnormal results of liver function studies; Z87.891 Personal history of nicotine dependence; Z86.69 Personal history of other diseases of the nervous system and sense organs; Z56.0 Unemployment, unspecified; Z59.01 Sheltered homelessness
CPT/HCPCS: 36415; 80053; 85027; 86780; 93005; 93010; C9803; U0003; U0005

== ENCOUNTER 2022-06-27 18:32 | Inpatient (IN) | payer OTHER ==
[2022-06-27 19:15] VITALS: BMI 21.9
[2022-06-27] MEDS ORDERED: hydrOXYzine PAMOATE 25 MG CAPSULE (FP) PO PRN (20:46)
[2022-06-27] MEDS ORDERED: P-EPHED 60MG/TRIPROLIDI 2.5MG TABLET PO PRN (20:46)
[2022-06-27] MEDS ORDERED: ONDANSETRON *ODT* 4 MG TABLET SL PRN (20:46)
[2022-06-27] MEDS ORDERED: guaiFENesin 200 MG/10 ML 10 ML UNIT-DOSE CUPS PO PRN (20:46)
[2022-06-27] MEDS ORDERED: METHOCARBAMOL 500 MG TABLET PO PRN (20:46)
[2022-06-27] MEDS ORDERED: MAGNESIUM HYDROX 2400MG/30ML ORAL SUSPENSION 30 ML CUP PO PRN (20:46)
[2022-06-27] MEDS ORDERED: BISMUTH SUBSALICYLATE 524 MG/30 ML PO PRN (20:46)
[2022-06-27] MEDS ORDERED: LOPERAMIDE HCL 2 MG CAPSULE PO PRN (20:46)
[2022-06-27] MEDS ORDERED: MAG HYDROX/AL HYDROX/SIMETH 30 ML UNIT-DOSE CUP PO PRN (20:46)
[2022-06-27] MEDS ORDERED: MAGNESIUM CITRATE 300 ML BOTTLE PO PRN (20:46)
[2022-06-27] MEDS ORDERED: ACETAMINOPHEN 325 MG TABLET (FP) PO PRN ×2 (20:46)
[2022-06-27] MEDS ORDERED: DICYCLOMINE HCL 10 MG CAPSULE PO PRN (20:46)
[2022-06-27] MEDS ORDERED: IBUPROFEN 400 MG TABLET (FP) PO PRN (20:46)
[2022-06-27] MEDS ORDERED: BENZOCAINE/MENTHOL (CHLORASEPTIC ) LOZENGE MM PRN (20:46)
[2022-06-27] MEDS ORDERED: IBUPROFEN 600 MG TABLET (FP) PO PRN (20:46)
[2022-06-27] MEDS: THIAMINE HCL 100 MG TABLET (FP) PO SCH (23:19)
[2022-06-27] MEDS: MELATONIN 5 MG TABLETS PO SCH (23:19)
[2022-06-28] MEDS ORDERED: chlordiazePOXIDE HCL 25 MG CAPSULE PO PRN (06:23)
[2022-06-28] MEDS: chlordiazePOXIDE HCL 25 MG CAPSULE PO SCH ×4 (06:58→22:16)
[2022-06-28] MEDS: PRENATAL VITAMINS W/ FOLIC ACID TABLET (FP) PO SCH (10:24)
[2022-06-28 14:33] LABS: HEMATOCRIT 39.3 % (35.4-49); MCH 36.3 pg (25.7-33.7); MCHC 35.6 g/dl (32.0-35.9); MEAN CELL VOLUME 102.1 fl (80-96); MEAN PLT VOLUME 8.8 fl (7.5-11.1); PLATELET COUNT 176 10^3/uL (134-434); RBC 3.84 M/mm3 (4.00-5.60); RDW 12.5 % (11.9-15.9); WHITE BLOOD COUNT 5.1 K/mm3 (4.0-10.0)
[2022-06-28 14:38] LABS: CALCIUM 8.5 mg/dL (8.5-10.1)
[2022-06-28 14:39] LABS: ALBUMIN 3.7 g/dl (3.4-5.0); BLOOD UREA NITROGEN 4.9 mg/dL (7-18)
[2022-06-28 14:42] LABS: CREATININE 0.6 mg/dL (0.55-1.3)
[2022-06-28 14:43] LABS: TOT PROT 6.7 g/dl (6.4-8.2)
[2022-06-28 14:44] LABS: BILIRUBIN,TOTAL 1.1 mg/dL (0.2-1)
[2022-06-28] MEDS ORDERED: QUEtiapine FUMARATE 200 MG TABLET PO SCH (22:00)
[2022-06-28] MEDS: THIAMINE HCL 100 MG TABLET (FP) PO SCH (22:15)
[2022-06-28] MEDS: MELATONIN 5 MG TABLETS PO SCH (22:16)
[2022-06-29 07:14] VITALS: BP 116/72; PULSE 50; RESP 16; TEMP 97.5
[2022-06-29] MEDS: chlordiazePOXIDE HCL 25 MG CAPSULE PO SCH ×2 (08:11→12:19)
[2022-06-29] MEDS: PRENATAL VITAMINS W/ FOLIC ACID TABLET (FP) PO SCH (12:19)
[2022-06-30] MEDS ORDERED: chlordiazePOXIDE HCL 10 MG CAPSULE PO PRN
[2022-06-30] MEDS ORDERED: chlordiazePOXIDE HCL 10 MG CAPSULE PO SCH (05:00)
[2022-07-01] MEDS ORDERED: chlordiazePOXIDE HCL 10 MG CAPSULE PO SCH (05:00)
[2022-07-02] MEDS ORDERED: chlordiazePOXIDE HCL 10 MG CAPSULE PO ONE (05:00)
== END 2022-06-29 09:40 | disposition left against medical advice (07) | DRG 770 ==
LOC: YASAS 18:32 → Y3N 21:22
PROVIDERS: ADMIT Allergy & Immunology; ATTEND Surgery
PROC: HZ2ZZZZ Detoxification Services for Substance Abuse Treatment (ICD-10-PCS; principal; 2022-06-27)
DX: F10.230 Alcohol dependence with withdrawal, uncomplicated (principal); F12.20 Cannabis dependence, uncomplicated; F20.9 Schizophrenia, unspecified; F31.9 Bipolar disorder, unspecified; F19.280 Other psychoactive substance dependence with psychoactive substance-induced anxiety disorder; F19.282 Other psychoactive substance dependence with psychoactive substance-induced sleep disorder; F19.24 Other psychoactive substance dependence with psychoactive substance-induced mood disorder; Z87.891 Personal history of nicotine dependence; Z86.59 Personal history of other mental and behavioral disorders; Z86.69 Personal history of other diseases of the nervous system and sense organs; Z59.01 Sheltered homelessness
CPT/HCPCS: 36415; 80053; 85027; 86780; 87811; C9803-CS; U0003; U0005

== ENCOUNTER 2022-07-28 11:24 | Inpatient (IN) | payer OTHER ==
[2022-07-28 12:56] VITALS: BMI 22.6
[2022-07-28] MEDS ORDERED: ONDANSETRON *ODT* 4 MG TABLET SL PRN (14:26)
[2022-07-28] MEDS ORDERED: LOPERAMIDE HCL 2 MG CAPSULE PO PRN (14:26)
[2022-07-28] MEDS ORDERED: MAGNESIUM HYDROX 2400MG/30ML ORAL SUSPENSION 30 ML CUP PO PRN (14:26)
[2022-07-28] MEDS ORDERED: BENZOCAINE/MENTHOL (CHLORASEPTIC ) LOZENGE MM PRN (14:26)
[2022-07-28] MEDS ORDERED: DICYCLOMINE HCL 10 MG CAPSULE PO PRN (14:26)
[2022-07-28] MEDS ORDERED: METHOCARBAMOL 500 MG TABLET PO PRN (14:26)
[2022-07-28] MEDS ORDERED: IBUPROFEN 400 MG TABLET (FP) PO PRN (14:26)
[2022-07-28] MEDS ORDERED: ACETAMINOPHEN 325 MG TABLET (FP) PO PRN ×2 (14:26)
[2022-07-28] MEDS ORDERED: BISMUTH SUBSALICYLATE 262 MG/15 ML BTL PO PRN (14:26)
[2022-07-28] MEDS ORDERED: MAG HYDROX/AL HYDROX/SIMETH 30 ML UNIT-DOSE CUP PO PRN (14:26)
[2022-07-28] MEDS ORDERED: IBUPROFEN 600 MG TABLET (FP) PO PRN (14:26)
[2022-07-28] MEDS ORDERED: NICOTINE 10 MG CARTRIDGE (INHALER) IH PRN (14:26)
[2022-07-28] MEDS ORDERED: MAGNESIUM CITRATE 300 ML BOTTLE PO PRN (14:26)
[2022-07-28] MEDS ORDERED: NALOXONE HCL (KLOXXADO) 8 MG SPRAY NS PRN (14:26)
[2022-07-28] MEDS: hydrOXYzine PAMOATE 25 MG CAPSULE (FP) PO SCH ×2 (18:00→22:56)
[2022-07-28] MEDS: THIAMINE HCL 100 MG TABLET (FP) PO SCH (22:56)
[2022-07-28] MEDS: MELATONIN 5 MG TABLETS PO SCH (22:56)
[2022-07-29] MEDS: hydrOXYzine PAMOATE 25 MG CAPSULE (FP) PO SCH ×5 (06:50→22:29)
[2022-07-29] MEDS ORDERED: LORazepam 1 MG TABLET PO PRN (10:06)
[2022-07-29] MEDS: PRENATAL VITAMINS W/ FOLIC ACID TABLET (FP) PO SCH (10:45)
[2022-07-29] MEDS: LORazepam 1 MG TABLET PO SCH ×3 (11:35→22:29)
[2022-07-29 12:48] LABS: HEMATOCRIT 46.1 % (35.4-49); HEMOGLOBIN 16.1 GM/dL (11.7-16.9); MCH 35.9 pg (25.7-33.7); MEAN CELL VOLUME 102.4 fl (80-96); MEAN PLT VOLUME 8.4 fl (7.5-11.1); PLATELET COUNT 198 10^3/uL (134-434); RDW 13.1 % (11.9-15.9); WHITE BLOOD COUNT 3.4 K/mm3 (4.0-10.0)
[2022-07-29 12:58] LABS: CALCIUM 9.2 mg/dL (8.5-10.1)
[2022-07-29 12:59] LABS: ALBUMIN 3.7 g/dl (3.4-5.0); BLOOD UREA NITROGEN 8.2 mg/dL (7-18)
[2022-07-29 13:02] LABS: CREATININE 0.7 mg/dL (0.55-1.3)
[2022-07-29 13:04] LABS: TOT PROT 7.3 g/dl (6.4-8.2)
[2022-07-29] MEDS: MELATONIN 5 MG TABLETS PO SCH (22:29)
[2022-07-29] MEDS: THIAMINE HCL 100 MG TABLET (FP) PO SCH (22:29)
[2022-07-30] MEDS: hydrOXYzine PAMOATE 25 MG CAPSULE (FP) PO SCH ×5 (05:44→22:45)
[2022-07-30] MEDS: LORazepam 1 MG TABLET PO SCH ×4 (05:44→22:46)
[2022-07-30] MEDS: PRENATAL VITAMINS W/ FOLIC ACID TABLET (FP) PO SCH (11:00)
[2022-07-30] MEDS: THIAMINE HCL 100 MG TABLET (FP) PO SCH (22:45)
[2022-07-30] MEDS: MELATONIN 5 MG TABLETS PO SCH (22:45)
[2022-07-31] MEDS ORDERED: LORazepam 0.5 MG TABLET PO PRN
[2022-07-31] MEDS: LORazepam 0.5 MG TABLET PO SCH ×4 (05:42→22:39)
[2022-07-31] MEDS: hydrOXYzine PAMOATE 25 MG CAPSULE (FP) PO SCH ×5 (05:43→22:39)
[2022-07-31] MEDS: PRENATAL VITAMINS W/ FOLIC ACID TABLET (FP) PO SCH (10:06)
[2022-07-31] MEDS: busPIRone HCL 5 MG TABLET PO SCH ×2 (14:26→22:39)
[2022-07-31] MEDS ORDERED: QUEtiapine FUMARATE 100 MG TABLET (FP) PO SCH (22:00)
[2022-07-31] MEDS: THIAMINE HCL 100 MG TABLET (FP) PO SCH (22:39)
[2022-07-31] MEDS: MELATONIN 5 MG TABLETS PO SCH (22:40)
[2022-08-01] MEDS ORDERED: LORazepam 0.5 MG TABLET PO ONE (05:00)
[2022-08-01] MEDS: busPIRone HCL 5 MG TABLET PO SCH (05:48)
[2022-08-01] MEDS: hydrOXYzine PAMOATE 25 MG CAPSULE (FP) PO SCH (05:48)
[2022-08-01 09:32] VITALS: BP 116/80; PULSE 84; RESP 16; TEMP 97.2
== END 2022-08-01 09:45 | disposition home or self-care (01) | DRG 775 ==
LOC: YASAS 11:24 → Y3N 14:31
PROVIDERS: ADMIT Allergy & Immunology; ATTEND Surgery
PROC: HZ2ZZZZ Detoxification Services for Substance Abuse Treatment (ICD-10-PCS; principal; 2022-07-28)
DX: F10.230 Alcohol dependence with withdrawal, uncomplicated (principal); F13.20 Sedative, hypnotic or anxiolytic dependence, uncomplicated; F12.20 Cannabis dependence, uncomplicated; F20.9 Schizophrenia, unspecified; F31.9 Bipolar disorder, unspecified; F90.9 Attention-deficit hyperactivity disorder, unspecified type; R74.01 Elevation of levels of liver transaminase levels; Z86.69 Personal history of other diseases of the nervous system and sense organs; Z59.01 Sheltered homelessness
CPT/HCPCS: 36415; 80053; 85027; 86780; 86803; 87340; 87517; C9803-CS; U0003; U0005

== ENCOUNTER 2023-02-19 11:08 | Inpatient (IN) | payer OTHER ==
[2023-02-19 11:18] VITALS: BMI 22.6
[2023-02-19] MEDS ORDERED: BISMUTH SUBSALICYLATE 262 MG/15 ML BTL PO PRN (11:30)
[2023-02-19] MEDS ORDERED: IBUPROFEN 400 MG TABLET (FP) PO PRN (11:30)
[2023-02-19] MEDS ORDERED: MAGNESIUM HYDROX 2400MG/30ML ORAL SUSPENSION 30 ML CUP PO PRN (11:30)
[2023-02-19] MEDS ORDERED: guaiFENesin 600 MG TABLET.ER (FP) PO PRN (11:30)
[2023-02-19] MEDS ORDERED: ONDANSETRON *ODT* 4 MG TABLET SL PRN (11:30)
[2023-02-19] MEDS ORDERED: IBUPROFEN 600 MG TABLET (FP) PO PRN (11:30)
[2023-02-19] MEDS ORDERED: P-EPHED 60MG/TRIPROLIDI 2.5MG TABLET PO PRN (11:30)
[2023-02-19] MEDS ORDERED: BENZOCAINE/MENTHOL (CHLORASEPTIC ) LOZENGE MM PRN (11:30)
[2023-02-19] MEDS ORDERED: MELATONIN 5 MG TABLETS PO PRN (11:30)
[2023-02-19] MEDS ORDERED: LOPERAMIDE HCL 2 MG CAPSULE PO PRN (11:30)
[2023-02-19] MEDS ORDERED: hydrOXYzine PAMOATE 25 MG CAPSULE (FP) PO PRN (11:30)
[2023-02-19] MEDS ORDERED: POLYETHYLENE GLYCOL (HEALTHYLAX) 3350 17 GM PACKET PO PRN (11:30)
[2023-02-19] MEDS ORDERED: BENZONATATE 200 MG CAPSULE PO PRN (11:30)
[2023-02-19] MEDS ORDERED: DICYCLOMINE HCL 10 MG CAPSULE PO PRN (11:30)
[2023-02-19] MEDS ORDERED: MAG HYDROX/AL HYDROX/SIMETH 30 ML UNIT-DOSE CUP PO PRN (11:30)
[2023-02-19] MEDS ORDERED: ACETAMINOPHEN 325 MG TABLET (FP) PO PRN (11:30)
[2023-02-19] MEDS ORDERED: chlordiazePOXIDE HCL 25 MG CAPSULE PO PRN (11:32)
[2023-02-19] MEDS ORDERED: levETIRAcetam 500 MG TABLET (FP) PO ONE (11:44)
[2023-02-19] MEDS: levETIRAcetam 500 MG TABLET (FP) PO SCH ×2 (11:45→22:49)
[2023-02-19] MEDS: chlordiazePOXIDE HCL 25 MG CAPSULE PO SCH ×3 (11:54→22:49)
[2023-02-19] MEDS ORDERED: QUEtiapine FUMARATE 100 MG TABLET (FP) PO SCH (22:00)
[2023-02-19] MEDS ORDERED: THIAMINE HCL 100 MG TABLET (FP) PO SCH (22:00)
[2023-02-19] MEDS: busPIRone HCL 5 MG TABLET PO SCH (22:48)
[2023-02-20] MEDS: chlordiazePOXIDE HCL 25 MG CAPSULE PO SCH ×2 (05:42→10:19)
[2023-02-20] MEDS: busPIRone HCL 5 MG TABLET PO SCH ×2 (05:45→14:23)
[2023-02-20] MEDS ORDERED: PRENATAL VITAMINS W/ FOLIC ACID TABLET (FP) PO SCH (10:00)
[2023-02-20 10:11] LABS: HEMATOCRIT 42.7 % (35.4-49); HEMOGLOBIN 15.5 GM/dL (11.7-16.9); MCH 36.5 pg (25.7-33.7); MCHC 36.3 g/dl (32.0-35.9); MEAN CELL VOLUME 100.4 fl (80-96); PLATELET COUNT 189 10^3/uL (134-434); RBC 4.25 M/mm3 (4.00-5.60); RDW 12.6 % (11.9-15.9); WHITE BLOOD COUNT 3.2 K/mm3 (4.0-10.0)
[2023-02-20 10:16] LABS: ALBUMIN 3.6 g/dl (3.4-5.0); BLOOD UREA NITROGEN 6.2 mg/dL (7-18); CALCIUM 9.2 mg/dL (8.5-10.1)
[2023-02-20 10:19] LABS: CREATININE 0.7 mg/dL (0.55-1.3)
[2023-02-20] MEDS: levETIRAcetam 500 MG TABLET (FP) PO SCH (10:19)
[2023-02-20 10:20] LABS: TOT PROT 6.8 g/dl (6.4-8.2)
[2023-02-20 10:21] LABS: BILIRUBIN,TOTAL 1.2 mg/dL (0.2-1)
[2023-02-20 17:07] VITALS: BP 128/89; PULSE 74; RESP 18; TEMP 96.9
[2023-02-21] MEDS ORDERED: chlordiazePOXIDE HCL 25 MG CAPSULE PO SCH (05:00)
[2023-02-22] MEDS ORDERED: chlordiazePOXIDE HCL 10 MG CAPSULE PO PRN
[2023-02-22] MEDS ORDERED: chlordiazePOXIDE HCL 10 MG CAPSULE PO SCH (05:00)
[2023-02-23] MEDS ORDERED: chlordiazePOXIDE HCL 10 MG CAPSULE PO SCH (05:00)
[2023-02-24] MEDS ORDERED: chlordiazePOXIDE HCL 10 MG CAPSULE PO ONE (05:00)
== END 2023-02-20 16:50 | disposition left against medical advice (07) | DRG 770 ==
LOC: YASAS 11:08 → Y3N 12:36
PROVIDERS: ADMIT Allergy & Immunology; ATTEND Surgery
PROC: HZ2ZZZZ Detoxification Services for Substance Abuse Treatment (ICD-10-PCS; principal; 2023-02-19)
DX: F10.230 Alcohol dependence with withdrawal, uncomplicated (principal); F17.210 Nicotine dependence, cigarettes, uncomplicated; F25.9 Schizoaffective disorder, unspecified; F19.24 Other psychoactive substance dependence with psychoactive substance-induced mood disorder; I10 Essential (primary) hypertension; G47.00 Insomnia, unspecified; R74.8 Abnormal levels of other serum enzymes; W19.XXXA Unspecified fall, initial encounter; Y93.89 Activity, other specified; Y92.230 Patient room in hospital as the place of occurrence of the external cause
CPT/HCPCS: 36415; 80053; 85027; 86780; 87811; C9803-CS; U0003; U0005

== ENCOUNTER 2023-05-28 14:02 | Inpatient (IN) | payer OTHER ==
[2023-05-28 14:33] VITALS: BMI 22.1
[2023-05-28] MEDS ORDERED: TRIMETHOBENZAMIDE HCL 200MG/2ML INJ IM ONE (14:56)
[2023-05-28] MEDS ORDERED: LORazepam 2 MG/ML SDV VIAL IM ONE (14:57)
[2023-05-28] MEDS ORDERED: ONDANSETRON *ODT* 4 MG TABLET SL PRN (15:18)
[2023-05-28] MEDS ORDERED: guaiFENesin 600 MG TABLET.ER (FP) PO PRN (15:18)
[2023-05-28] MEDS ORDERED: BENZOCAINE/MENTHOL (CHLORASEPTIC ) LOZENGE MM PRN (15:18)
[2023-05-28] MEDS ORDERED: hydrOXYzine PAMOATE 25 MG CAPSULE (FP) PO PRN (15:18)
[2023-05-28] MEDS ORDERED: BISMUTH SUBSALICYLATE 524 MG/30 ML PO PRN (15:18)
[2023-05-28] MEDS ORDERED: LOPERAMIDE HCL 2 MG CAPSULE PO PRN (15:18)
[2023-05-28] MEDS ORDERED: IBUPROFEN 600 MG TABLET (FP) PO PRN (15:18)
[2023-05-28] MEDS ORDERED: METHOCARBAMOL 500 MG TABLET PO PRN (15:18)
[2023-05-28] MEDS ORDERED: DICYCLOMINE HCL 10 MG CAPSULE PO PRN (15:18)
[2023-05-28] MEDS ORDERED: P-EPHED 60MG/TRIPROLIDI 2.5MG TABLET PO PRN (15:18)
[2023-05-28] MEDS ORDERED: BENZONATATE 200 MG CAPSULE PO PRN (15:18)
[2023-05-28] MEDS ORDERED: IBUPROFEN 400 MG TABLET (FP) PO PRN (15:18)
[2023-05-28] MEDS ORDERED: MAG HYDROX/AL HYDROX/SIMETH 30 ML UNIT-DOSE CUP PO PRN (15:18)
[2023-05-28] MEDS ORDERED: ACETAMINOPHEN 325 MG TABLET (FP) PO PRN ×2 (15:18)
[2023-05-28] MEDS ORDERED: MAGNESIUM HYDROX 2400MG/30ML ORAL SUSPENSION 30 ML CUP PO PRN (15:18)
[2023-05-28] MEDS ORDERED: POLYETHYLENE GLYCOL (HEALTHYLAX) 3350 17 GM PACKET PO PRN (15:18)
[2023-05-28] MEDS ORDERED: levETIRAcetam 500 MG TABLET (FP) PO SCH (15:22)
[2023-05-28] MEDS ORDERED: chlordiazePOXIDE HCL 25 MG CAPSULE PO PRN (15:22)
[2023-05-28] MEDS ORDERED: chlordiazePOXIDE HCL 25 MG CAPSULE PO ONE (15:22)
[2023-05-28] MEDS ORDERED: METOPROLOL TARTRATE 25 MG TABLET (FP) PO ONE ×2 (15:22→17:00)
[2023-05-28] MEDS ORDERED: ASPIRIN COATED 81 MG TABLET.EC PO SCH (15:30)
[2023-05-28] MEDS ORDERED: METOPROLOL TARTRATE 25 MG TABLET (FP) ONE (16:42)
[2023-05-28] MEDS ORDERED: levETIRAcetam 500 MG TABLET (FP) PO ONE (16:42)
[2023-05-28] MEDS ORDERED: chlordiazePOXIDE HCL 25 MG CAPSULE ONE (16:42)
[2023-05-28] MEDS: chlordiazePOXIDE HCL 25 MG CAPSULE PO SCH ×2 (16:59→22:05)
[2023-05-28] MEDS: levETIRAcetam 500 MG TABLET (FP) PO SCH ×2 (16:59→22:05)
[2023-05-28] MEDS: ASPIRIN COATED 81 MG TABLET.EC PO SCH (18:27)
[2023-05-28] MEDS ORDERED: MELATONIN 5 MG TABLETS PO SCH (22:00)
[2023-05-28] MEDS ORDERED: THIAMINE HCL 100 MG TABLET (FP) PO SCH (22:00)
[2023-05-29] MEDS: chlordiazePOXIDE HCL 25 MG CAPSULE PO SCH ×2 (05:12→10:28)
[2023-05-29] MEDS ORDERED: PRENATAL VITAMINS W/ FOLIC ACID TABLET (FP) PO SCH (10:00)
[2023-05-29 10:17] LABS: HEMATOCRIT 44.5 % (35.4-49); HEMOGLOBIN 15.9 GM/dL (11.7-16.9); MCH 36.5 pg (25.7-33.7); MCHC 35.7 g/dl (32.0-35.9); MEAN CELL VOLUME 102.4 fl (80-96); MEAN PLT VOLUME 8.4 fl (7.5-11.1); PLATELET COUNT 164 10^3/uL (134-434); RBC 4.34 M/mm3 (4.00-5.60); RDW 12.9 % (11.9-15.9); WHITE BLOOD COUNT 3.5 K/mm3 (4.0-10.0)
[2023-05-29 10:21] LABS: CALCIUM 9.1 mg/dL (8.5-10.1)
[2023-05-29 10:22] LABS: ALBUMIN 3.9 g/dl (3.4-5.0); BLOOD UREA NITROGEN 9.1 mg/dL (7-18)
[2023-05-29 10:25] LABS: CREATININE 0.9 mg/dL (0.55-1.3)
[2023-05-29 10:26] LABS: BILIRUBIN,TOTAL 1.2 mg/dL (0.2-1)
[2023-05-29] MEDS: ASPIRIN COATED 81 MG TABLET.EC PO SCH (10:27)
[2023-05-29] MEDS: levETIRAcetam 500 MG TABLET (FP) PO SCH (10:27)
[2023-05-29 11:01] VITALS: BP 114/85; PULSE 83; RESP 16; TEMP 98
[2023-05-30] MEDS ORDERED: chlordiazePOXIDE HCL 25 MG CAPSULE PO SCH (05:00)
[2023-05-31] MEDS ORDERED: chlordiazePOXIDE HCL 10 MG CAPSULE PO PRN
[2023-05-31] MEDS ORDERED: chlordiazePOXIDE HCL 10 MG CAPSULE PO SCH (05:00)
[2023-06-01] MEDS ORDERED: chlordiazePOXIDE HCL 10 MG CAPSULE PO SCH (05:00)
[2023-06-02] MEDS ORDERED: chlordiazePOXIDE HCL 10 MG CAPSULE PO ONE (05:00)
== END 2023-05-29 11:13 | disposition home or self-care (01) | DRG 775 ==
LOC: YASAS 14:02 → Y3N 16:44
PROVIDERS: ADMIT Allergy & Immunology; ATTEND Surgery
PROC: HZ2ZZZZ Detoxification Services for Substance Abuse Treatment (ICD-10-PCS; principal; 2023-05-28)
DX: F10.230 Alcohol dependence with withdrawal, uncomplicated (principal); F15.10 Other stimulant abuse, uncomplicated; I10 Essential (primary) hypertension; R74.01 Elevation of levels of liver transaminase levels; Z86.69 Personal history of other diseases of the nervous system and sense organs; Z59.01 Sheltered homelessness
CPT/HCPCS: 36415; 80053; 85027; 86780; 87635; 87811; 93005; 93010

== ENCOUNTER 2023-05-30 22:33 | Inpatient (IN) | payer OTHER ==
[2023-05-30 22:57] VITALS: BMI 21.9
[2023-05-30] MEDS ORDERED: ONDANSETRON *ODT* 4 MG TABLET SL PRN (23:04)
[2023-05-30] MEDS ORDERED: NALOXONE HCL 0.4 MG/ML VIAL IM PRN (23:04)
[2023-05-30] MEDS ORDERED: POLYETHYLENE GLYCOL (HEALTHYLAX) 3350 17 GM PACKET PO PRN (23:04)
[2023-05-30] MEDS ORDERED: ACETAMINOPHEN 325 MG TABLET (FP) PO PRN (23:04)
[2023-05-30] MEDS ORDERED: hydrOXYzine PAMOATE 25 MG CAPSULE (FP) PO PRN (23:04)
[2023-05-30] MEDS ORDERED: BISMUTH SUBSALICYLATE 524 MG/30 ML PO PRN (23:04)
[2023-05-30] MEDS ORDERED: MAGNESIUM HYDROX 2400MG/30ML ORAL SUSPENSION 30 ML CUP PO PRN (23:04)
[2023-05-30] MEDS ORDERED: chlordiazePOXIDE HCL 25 MG CAPSULE PO PRN (23:04)
[2023-05-30] MEDS ORDERED: IBUPROFEN 400 MG TABLET (FP) PO PRN (23:04)
[2023-05-30] MEDS ORDERED: BENZOCAINE/MENTHOL (CHLORASEPTIC ) LOZENGE MM PRN (23:04)
[2023-05-30] MEDS ORDERED: LOPERAMIDE HCL 2 MG CAPSULE PO PRN (23:04)
[2023-05-30] MEDS ORDERED: DICYCLOMINE HCL 10 MG CAPSULE PO PRN (23:04)
[2023-05-30] MEDS ORDERED: NICOTINE POLACRILEX 2 MG GUM BUC PRN (23:04)
[2023-05-30] MEDS ORDERED: BENZONATATE 200 MG CAPSULE PO PRN (23:04)
[2023-05-30] MEDS ORDERED: MAG HYDROX/AL HYDROX/SIMETH 30 ML UNIT-DOSE CUP PO PRN (23:04)
[2023-05-30] MEDS ORDERED: guaiFENesin 600 MG TABLET.ER (FP) PO PRN (23:04)
[2023-05-30] MEDS ORDERED: NALOXONE HCL (KLOXXADO) 8 MG SPRAY NS PRN (23:04)
[2023-05-30] MEDS ORDERED: IBUPROFEN 600 MG TABLET (FP) PO PRN (23:04)
[2023-05-30] MEDS: chlordiazePOXIDE HCL 25 MG CAPSULE PO SCH (23:45)
[2023-05-31] MEDS: chlordiazePOXIDE HCL 25 MG CAPSULE PO SCH ×4 (05:24→22:33)
[2023-05-31] MEDS: PRENATAL VITAMINS W/ FOLIC ACID TABLET (FP) PO SCH (10:16)
[2023-05-31] MEDS: NICOTINE 14 MG/24 HOURS TOPICAL PATCH TD SCH (10:17)
[2023-05-31] MEDS: THIAMINE HCL 100 MG TABLET (FP) PO SCH (22:31)
[2023-05-31] MEDS: MELATONIN 5 MG TABLETS PO SCH (22:31)
[2023-05-31] MEDS: QUEtiapine FUMARATE 100 MG TABLET (FP) PO SCH (22:32)
[2023-05-31] MEDS: busPIRone HCL 5 MG TABLET PO SCH (22:32)
[2023-05-31] MEDS: GABAPENTIN 100 MG CAPSULE PO SCH (22:32)
[2023-06-01] MEDS: chlordiazePOXIDE HCL 25 MG CAPSULE PO SCH ×4 (05:55→22:58)
[2023-06-01] MEDS: GABAPENTIN 100 MG CAPSULE PO SCH ×3 (05:56→22:43)
[2023-06-01] MEDS: NICOTINE 14 MG/24 HOURS TOPICAL PATCH TD SCH (10:36)
[2023-06-01] MEDS: PRENATAL VITAMINS W/ FOLIC ACID TABLET (FP) PO SCH (10:36)
[2023-06-01] MEDS: busPIRone HCL 5 MG TABLET PO SCH ×2 (10:36→22:43)
[2023-06-01 11:58] LABS: BLOOD UREA NITROGEN 5.3 mg/dL (7-18)
[2023-06-01 11:59] LABS: CALCIUM 8.9 mg/dL (8.5-10.1)
[2023-06-01 12:00] LABS: ALBUMIN 3.4 g/dl (3.4-5.0)
[2023-06-01 12:03] LABS: CREATININE 0.8 mg/dL (0.55-1.3); TOT PROT 6.5 g/dl (6.4-8.2)
[2023-06-01] MEDS: MELATONIN 5 MG TABLETS PO SCH (22:43)
[2023-06-01] MEDS: QUEtiapine FUMARATE 100 MG TABLET (FP) PO SCH (22:44)
[2023-06-01] MEDS: THIAMINE HCL 100 MG TABLET (FP) PO SCH (22:44)
[2023-06-02] MEDS ORDERED: chlordiazePOXIDE HCL 10 MG CAPSULE PO PRN
[2023-06-02] MEDS: chlordiazePOXIDE HCL 10 MG CAPSULE PO SCH ×4 (05:54→22:53)
[2023-06-02] MEDS: GABAPENTIN 100 MG CAPSULE PO SCH ×3 (06:13→22:52)
[2023-06-02] MEDS: busPIRone HCL 5 MG TABLET PO SCH ×2 (10:40→22:53)
[2023-06-02] MEDS: PRENATAL VITAMINS W/ FOLIC ACID TABLET (FP) PO SCH (10:40)
[2023-06-02] MEDS: NICOTINE 14 MG/24 HOURS TOPICAL PATCH TD SCH (10:41)
[2023-06-02] MEDS: THIAMINE HCL 100 MG TABLET (FP) PO SCH (22:52)
[2023-06-02] MEDS: MELATONIN 5 MG TABLETS PO SCH (22:52)
[2023-06-02] MEDS: QUEtiapine FUMARATE 100 MG TABLET (FP) PO SCH (22:52)
[2023-06-03] MEDS: chlordiazePOXIDE HCL 10 MG CAPSULE PO SCH ×2 (06:00→18:10)
[2023-06-03] MEDS: GABAPENTIN 100 MG CAPSULE PO SCH ×3 (06:14→22:58)
[2023-06-03] MEDS: NICOTINE 14 MG/24 HOURS TOPICAL PATCH TD SCH (10:32)
[2023-06-03] MEDS: PRENATAL VITAMINS W/ FOLIC ACID TABLET (FP) PO SCH (10:32)
[2023-06-03] MEDS: busPIRone HCL 5 MG TABLET PO SCH ×2 (10:32→22:59)
[2023-06-03] MEDS: QUEtiapine FUMARATE 100 MG TABLET (FP) PO SCH (22:59)
[2023-06-03] MEDS: THIAMINE HCL 100 MG TABLET (FP) PO SCH (22:59)
[2023-06-03] MEDS: MELATONIN 5 MG TABLETS PO SCH (23:02)
[2023-06-04] MEDS ORDERED: chlordiazePOXIDE HCL 10 MG CAPSULE PO ONE (05:00)
[2023-06-04 06:12] VITALS: RESP 16
[2023-06-04] MEDS: GABAPENTIN 100 MG CAPSULE PO SCH ×2 (06:16→13:38)
[2023-06-04] MEDS: PRENATAL VITAMINS W/ FOLIC ACID TABLET (FP) PO SCH (10:32)
[2023-06-04] MEDS: NICOTINE 14 MG/24 HOURS TOPICAL PATCH TD SCH (10:32)
[2023-06-04] MEDS: busPIRone HCL 5 MG TABLET PO SCH (10:32)
[2023-06-04 12:01] VITALS: BP 101/60; PULSE 64; TEMP 97.7
== END 2023-06-04 13:38 | disposition home or self-care (01) | DRG 775 ==
LOC: YASAS 22:33 → Y3N 23:35
PROVIDERS: ADMIT Allergy & Immunology; ATTEND Surgery
PROC: HZ2ZZZZ Detoxification Services for Substance Abuse Treatment (ICD-10-PCS; principal; 2023-05-30)
DX: F10.230 Alcohol dependence with withdrawal, uncomplicated (principal); F15.10 Other stimulant abuse, uncomplicated; F12.20 Cannabis dependence, uncomplicated; F17.210 Nicotine dependence, cigarettes, uncomplicated; F31.9 Bipolar disorder, unspecified; F20.9 Schizophrenia, unspecified; F10.24 Alcohol dependence with alcohol-induced mood disorder; F41.9 Anxiety disorder, unspecified; U07.1 COVID-19; G47.00 Insomnia, unspecified; I10 Essential (primary) hypertension; Z59.01 Sheltered homelessness
CPT/HCPCS: 36415; 80053; 87635